=== PATIENT | female | born 1935 | race Caucasian/White ===

== ENCOUNTER 2017-07-23 11:18 | Outpatient (CLI) | payer MEDICARE, BC ==
--- NOTE | 2017-07-23 15:00 | PET ---
PET CT: Date: 07/23/17 HISTORY: 81-year-old female with left breast cancer and non-Hodgkin's lymphoma. Exam requested for restaging. Last radiation therapy was in 2007 and last chemotherapy was in 2008. TECHNIQUE: PET scanning with CT attenuation correction was performed from the base of the brain through the prox imal thighs following the intravenous administration of 11.3 mCi F18-FDG in the right antecubital fos sa. Imaging was performed after an uptake interval of 55 minutes. COMPARISON: 07/17/16. FINDINGS: No evidence of charito hypermetabolism is seen in the neck, chest, axillae, abdomen, pelvis, or inguina l regions. No hypermetabolic pulmonary nodules, liver, adrenal, or skeletal lesions identified. There is physiologic activity in the GI and tracts. The CT scan used for attenuation correction demonstrates no evidence of pleural effusions or ascites. A small hiatal hernia, cholelithiasis, renal cysts and sigmoid diverticulosis are again seen. IMPRESSION: No evidence of viable lymphoma or metastatic disease. POS: REJI
== END 2017-07-23 11:19 | disposition home or self-care (01) ==
LOC: PET 11:18
PROVIDERS: ATTEND Internal Medicine Hematology & Oncology
DX: C50.912 Malignant neoplasm of unspecified site of left female breast (principal); C85.90 Non-Hodgkin lymphoma, unspecified, unspecified site
CPT/HCPCS: 78815; A9552

== ENCOUNTER 2018-08-07 08:45 | Outpatient (CLI) | payer MEDICARE, BC ==
--- NOTE | 2018-08-07 12:29 | PET ---
Nuclear medicine FDG PET/CT: (Positron emission tomography and computed tomography) DATE: 08/07/2018 HISTORY: 82-year-old female with left breast cancer and non-Hodgkin's lymphoma. Follow-up. COMPARISON: 07/23/2017 TECHNIQUE: IV injection of F-18 fluorodeoxyglucose (FDG) dose: 11.5 mCi. PET scan and attenuation correction CT performed from skull base to proximal thighs. FINDINGS: SUV (standard uptake values) numbers given are maximum SUVs. QCLR used. There is no abnormal focus of FDG uptake in the neck, chest, abdomen, pelvis, or skeleton, that is ruano spicious for malignant activity. There is a calcified gallstone. There is a right renal upper pole cyst. Left mastectomy defect. No significant interval change. IMPRESSION: 1) no evidence of malignant activity. 2) cholelithiasis without evidence of acute cholecystitis. 3) status post left mastectomy. 4) right renal upper pole cyst.
== END 2018-08-07 08:46 | disposition home or self-care (01) ==
LOC: PET 08:45
PROVIDERS: ATTEND Internal Medicine Hematology & Oncology
DX: C50.912 Malignant neoplasm of unspecified site of left female breast (principal); C85.90 Non-Hodgkin lymphoma, unspecified, unspecified site; K80.20 Calculus of gallbladder without cholecystitis without obstruction; N28.1 Cyst of kidney, acquired; Z90.12 Acquired absence of left breast and nipple
CPT/HCPCS: 78815; A9552

== ENCOUNTER 2020-08-18 08:07 | Outpatient (CLI) | payer MEDICARE, BC | END 2020-08-18 08:08 | disposition home or self-care (01) | LOC: PET 08:07 | PROVIDERS: ATTEND Internal Medicine Hematology & Oncology | DX: C50.812 Malignant neoplasm of overlapping sites of left female breast (principal); C82.93 Follicular lymphoma, unspecified, intra-abdominal lymph nodes; K80.20 Calculus of gallbladder without cholecystitis without obstruction; N20.0 Calculus of kidney; N28.1 Cyst of kidney, acquired | CPT/HCPCS: 78815; A9552 ==

== ENCOUNTER 2022-11-15 09:30 | Outpatient (CLI) | payer MEDICARE, BC | END 2022-11-15 09:31 | disposition home or self-care (01) | LOC: PET 09:30 | PROVIDERS: ATTEND Internal Medicine Hematology & Oncology | DX: C82.93 Follicular lymphoma, unspecified, intra-abdominal lymph nodes (principal) | CPT/HCPCS: 78815; A9552 ==